=== PATIENT | male | born 2005 | race Caucasian/White ===

== ENCOUNTER 2024-04-14 09:14 | Emergency (ER) | payer OTHER, SELFPAY ==
[2024-04-14] VITALS (7 sets, daily range): BP systolic 107–126; BP diastolic 61–82; BMI 21.8
--- NOTE | 2024-04-14 09:28 | ED.GENMED ---
History of Present Illness
<Harsha Newton Jr., PA-C - Last Filed: 04/14/24 14:57>
General
Chief Complaint: Seizure
Source: patient, spouse, family and ambulance crew
Exam Limitations: none
Time Seen by Provider: 04/14/24 09:17
Nursing documentation reviewed up to this point in time: agreed with
History of Present Illness
History of Present Illness:
18-year-old male presenting to the emergency department today after an event this morning in bed with his girlfriend when he was thrashing his head backward and his arms were contracted toward himself his eyes were rolled on his head this lasted
roughly 5 and seem to occur upon awakening roughly 1 hour ago prior to arrival. The patient has no memory of the event. Has been very confused since the event but is starting to remember slightly is on. Did have nausea and vomited 1 time en route
was given Zofran with improvement. He denies any history of similar symptoms or any seizure history. He does smoke marijuana occasionally denies any alcohol use or drug use. No medications taken recently. No recent trauma. 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
and does sustain occasional head injuries. He has had multiple diagnosed concussion as a child. According to his girlfriend he has had events where he seems confused, dissociated and it was diagnosed as a possible panic attack. He does see a
psychologist for this. He does not take any medications for this.
Review of Systems
<Harsha Newton Jr., PA-C - Last Filed: 04/14/24 14:57>
Review of Systems
Allergies reviewed?: Yes
All Other Systems: ROS reviewed and negative except as documented in HPI and ROS
Phy Exam
<Harsha Newton Jr., PA-C - Last Filed: 04/14/24 14:57>
Physical Exam
Physical Exam:
GENERAL: Alert , in no apparent distress
EYE: pupils equal and reactive
NECK: Supple, no significant adenopathy.
ENT: o/p clr, mmm.
CARDIAC: Regular rate and rhythm .
LUNGS: Clear breath sounds bilaterally, no acute respiratory distress, no wheezes/rales/rhonchi
ABDOMEN: Soft, without focal tenderness, no r/g, no cvat
NEUROLOGICAL: Alert patient is oriented to place but not time or current events. He is asking questions somewhat repetitively but is following basic direct, no focal neuro deficits
SKIN: Warm and dry, skin intact.
MUSCULOSKELETAL: No edema, well perfused.
PSYCH: Normal and appropriate interaction.
Course
<Harsha Newton Jr., KAN - Last Filed: 04/14/24 14:57>
Orders/Labs/Results
Orders:
Orders
04/14/24 09:17
CT Head W/o Iv Contrast Urgent
Comment:
Reason For Exam: new onset seizure
Bedside Glucose- Treatment ONCE
Cardiac Monitoring- Treatment ONCE
0.9% Sodium Chloride 500 ml [Nss] 500 ml IV BOLUS
04/14/24 09:18
Electrocardiogram (*1) Stat
Reason for Study: Other
Other Reason for Exam: neuro symptoms
EKG- Treatment ONCE
04/14/24 09:20
Urinalysis Reflex To Culture Urgent
0.9% Sodium Chloride 1000 ml [Nss] 1,000 ml IV BOLUS
04/14/24 09:43
Complete Blood Count/With Diff Urgent
Comprehensive Metabolic Panel Urgent
Magnesium Urgent
04/14/24 10:08
Lactic Acid Urgent
04/14/24 12:10
EEG Routine Routine
Reason for Exam: ? CPS
Neurology Consult:: DR. MENDIOLA
MR Brain W/o & With Contrast Routine
Comment:
Reason For Exam: seizure
Recent pill cam endoscopy?: No
04/14/24 12:45
Add On- LAB Urgent
Tests Added?: CK
Drug Screen, Urine [Urine Drug Abuse Screen] Urgent
04/14/24 13:49
Consult Neurology [NEUROLOGY CONSULT] Routine
Consulting Provider: Jordi Dodson
Was physician already notified: Yes
Reason for consult: New neurological issues
04/14/24 13:58
Admit Patient As Directed
Co-Sign Provider:
Level of Care: Inpatient admission
Assign to:: Medical/Surgical
Physician / Group: Hospitalists
Diagnosis: seizure
Reason for Hospitalization: seizure
Expected length of stay greater than two midnights?: Yes
ELOS- Estimated Length of Stay in days: 3
I certify the patient meets the requirements for IP care: Yes
04/14/24 13:59
PRN Pain Medication Management As Directed
May give lesser potent ordered pain med per pt: Yes
preference::
Protocol:: Medication orders for pain may be administered in a
manner that supports deferring to patient preference
when the pt is:
- Requesting an ordered lesser potent pain medication.
Least to most potent pain medications are defined
as: acetaminophen < NSAID < tramadol < opioids
(morphine, oxycodone, hydromorphone).
- Requesting a lesser dose of the same medication IF
ORDERED.
- Requesting a less intrusive route of administration
if both routes are prescribed by the provider (PO <
IV).
04/14/24 14:00
DX Deep Vein Thrombosis Video Routine
04/14/24 14:01
Code Status As Directed
Resuscitation Status: Full Code
04/14/24 14:04
Activity As Directed
Activity Level: Ambulate
I&O [Intake/ Output] As Directed
Frequency: q12h
Ot Eval And Treat Routine
Pt Eval And Treat Routine
Activity Level: Ambulate
04/14/24 14:06
Admit/Transfer Patient As Directed
Co-Sign Provider:
Level of Care: Inpatient admission
Assign to:: Medical/Surgical
Physician / Group: Hospitalists
Diagnosis: seizure
Reason for Hospitalization: seizure
Expected length of stay greater than two midnights?: Yes
ELOS- Estimated Length of Stay in days: 3
I certify the patient meets the requirements for IP care: Yes
PRN Pain Medication Management As Directed
May give lesser potent ordered pain med per pt: Yes
preference::
Protocol:: Medication orders for pain may be administered in a
manner that supports deferring to patient preference
when the pt is:
- Requesting an ordered lesser potent pain medication.
Least to most potent pain medications are defined
as: acetaminophen < NSAID < tramadol < opioids
(morphine, oxycodone, hydromorphone).
- Requesting a lesser dose of the same medication IF
ORDERED.
- Requesting a less intrusive route of administration
if both routes are prescribed by the provider (PO <
IV).
04/14/24 18:00
Enoxaparin Sodium [Lovenox] 30 mg SC QPM
Abnormal Lab Results
04/14/24 04/14/24 04/14/24
09:37 09:43 10:08
Lymphocytes % 17.9 L %
(20.5-51.1)
Carbon Dioxide 16 L mmol/L
(22-30)
Glucose 181 H mg/dl
(70-99)
Lactic Acid 3.8 H mmol/L
(0.7-2.0)
Total Bilirubin 2.4 H mg/dl
(0.2-1.3)
POC Glucose 164 H mg/dl
(70-99)
04/14/24 09:43
04/14/24 09:43
Vital Signs
Initial and Last Documented VS:
Initial Vital Signs
Pulse Resp BP Pulse Ox
72 16 109/70 100
04/14/24 09:18 04/14/24 09:18 04/14/24 09:18 04/14/24 09:18
Last Documented Vital Signs
Temp Pulse Resp BP Pulse Ox
97.9 F 70 14 113/65 99
04/14/24 09:38 04/14/24 13:00 04/14/24 12:15 04/14/24 13:00 04/14/24 13:00
<Debra Correa MD - Last Filed: 04/14/24 11:22>
Orders/Labs/Results
Orders:
Orders
04/14/24 09:17
CT Head W/o Iv Contrast Urgent
Comment:
Reason For Exam: new onset seizure
Bedside Glucose- Treatment ONCE
Cardiac Monitoring- Treatment ONCE
0.9% Sodium Chloride 500 ml [Nss] 500 ml IV BOLUS
04/14/24 09:18
Electrocardiogram (*1) Stat
Reason for Study: Other
Other Reason for Exam: neuro symptoms
EKG- Treatment ONCE
04/14/24 09:20
Urinalysis Reflex To Culture Urgent
0.9% Sodium Chloride 1000 ml [Nss] 1,000 ml IV BOLUS
04/14/24 09:43
Complete Blood Count/With Diff Urgent
Comprehensive Metabolic Panel Urgent
Magnesium Urgent
04/14/24 10:08
Lactic Acid Urgent
04/14/24 12:10
EEG Routine Routine
Reason for Exam: ? CPS
Neurology Consult:: DR. MENDIOLA
MR Brain W/o & With Contrast Routine
Comment:
Reason For Exam: seizure
Recent pill cam endoscopy?: No
04/14/24 12:45
Add On- LAB Urgent
Tests Added?: CK
Drug Screen, Urine [Urine Drug Abuse Screen] Urgent
04/14/24 13:49
Consult Neurology [NEUROLOGY CONSULT] Routine
Consulting Provider: Jordi Dodson
Was physician already notified: Yes
Reason for consult: New neurological issues
04/14/24 13:58
Admit Patient As Directed
Co-Sign Provider:
Level of Care: Inpatient admission
Assign to:: Medical/Surgical
Physician / Group: Hospitalists
Diagnosis: seizure
Reason for Hospitalization: seizure
Expected length of stay greater than two midnights?: Yes
ELOS- Estimated Length of Stay in days: 3
I certify the patient meets the requirements for IP care: Yes
04/14/24 13:59
PRN Pain Medication Management As Directed
May give lesser potent ordered pain med per pt: Yes
preference::
Protocol:: Medication orders for pain may be administered in a
manner that supports deferring to patient preference
when the pt is:
- Requesting an ordered lesser potent pain medication.
Least to most potent pain medications are defined
as: acetaminophen < NSAID < tramadol < opioids
(morphine, oxycodone, hydromorphone).
- Requesting a lesser dose of the same medication IF
ORDERED.
- Requesting a less intrusive route of administration
if both routes are prescribed by the provider (PO <
IV).
04/14/24 14:00
DX Deep Vein Thrombosis Video Routine
04/14/24 14:01
Code Status As Directed
Resuscitation Status: Full Code
04/14/24 14:04
Activity As Directed
Activity Level: Ambulate
I&O [Intake/ Output] As Directed
Frequency: q12h
Ot Eval And Treat Routine
Pt Eval And Treat Routine
Activity Level: Ambulate
04/14/24 14:06
Admit/Transfer Patient As Directed
Co-Sign Provider:
Level of Care: Inpatient admission
Assign to:: Medical/Surgical
Physician / Group: Hospitalists
Diagnosis: seizure
Reason for Hospitalization: seizure
Expected length of stay greater than two midnights?: Yes
ELOS- Estimated Length of Stay in days: 3
I certify the patient meets the requirements for IP care: Yes
PRN Pain Medication Management As Directed
May give lesser potent ordered pain med per pt: Yes
preference::
Protocol:: Medication orders for pain may be administered in a
manner that supports deferring to patient preference
when the pt is:
- Requesting an ordered lesser potent pain medication.
Least to most potent pain medications are defined
as: acetaminophen < NSAID < tramadol < opioids
(morphine, oxycodone, hydromorphone).
- Requesting a lesser dose of the same medication IF
ORDERED.
- Requesting a less intrusive route of administration
if both routes are prescribed by the provider (PO <
IV).
04/14/24 18:00
Enoxaparin Sodium [Lovenox] 30 mg SC QPM
Abnormal Lab Results
04/14/24 04/14/24 04/14/24
09:37 09:43 10:08
Lymphocytes % 17.9 L %
(20.5-51.1)
Carbon Dioxide 16 L mmol/L
(22-30)
Glucose 181 H mg/dl
(70-99)
Lactic Acid 3.8 H mmol/L
(0.7-2.0)
Total Bilirubin 2.4 H mg/dl
(0.2-1.3)
POC Glucose 164 H mg/dl
(70-99)
04/14/24 09:43
04/14/24 09:43
Vital Signs
Initial and Last Documented VS:
Initial Vital Signs
Pulse Resp BP Pulse Ox
72 16 109/70 100
04/14/24 09:18 04/14/24 09:18 04/14/24 09:18 04/14/24 09:18
Last Documented Vital Signs
Temp Pulse Resp BP Pulse Ox
97.9 F 70 14 113/65 99
04/14/24 09:38 04/14/24 13:00 04/14/24 12:15 04/14/24 13:00 04/14/24 13:00
<Harsha Newton Jr., PA-C - Last Filed: 04/14/24 14:57>
MDM/Problems Addressed
MDM/Problems Addressed:
18-year-old male presenting to the emergency department with a described event from his girlfriend upon awakening this morning within the last hour where he was thrashing his head backwards his eyes were rolled behind his head and his arms were
contracted lasted roughly 5 minutes since resolution he has been very confused but has been having improvement with this. He did bite his tongue. No history of seizures. Has had random intermittent dissociative events over the past few months
that are poorly characterized and has not had full assessment at this point. Vital signs on arrival are normal. Patient in no obvious distress and does not have any focality to his neurologic examination but does appear somewhat confused. He
knows that he is at [facility] but does not know that [place] was a few days ago and is unsure of the president. CT scan here without emergent findings labs showing elevated lactic acid level but otherwise labs unremarkable. Case was
discussed with neurology that saw the patient and would like to admit for MRI and EEG. Patient agreeable. Paperwork sent to [facility].
Patient seen by neurology patient getting MRI and EEG while still in the ER. These were normal he otherwise stable for outpatient management and follow-up. Return precautions given.
<Harsha Newton Jr., PA-C - Last Filed: 04/14/24 14:57>
*Critical Care Note
Total Time (30-74mins, 75-104mins- exclusive of procedures): Not Applicable
ED Attending Note
<Harsha Newton Jr., PA-C - Last Filed: 04/14/24 14:57>
-
Portions of this chart may have been created with voice recognition software.� Occasional wrong word or��sound alike� substitutions may have occurred due to the inherent limitations of voice recognition software.
<Debra Correa MD - Last Filed: 04/14/24 11:22>
ED Attending Note
Patient seen and examined by attending physician: Yes
I performed the substantive portion of visit, reviewed & personally made and approve the management plan that is documented in note by myself or EVELIN.: Yes
ED Attending Note:
18-year-old male presents to the emergency department after having a seizure as noted by his girlfriend who is laying next to him. She describes head turning, upper body twitching, drooling. Symptoms lasted just under 5 minutes. This is the first
time this has happened and he denies heavy alcohol use, prolonged wakefulness, or other potential triggers. On exam, patient obviously bit his tongue. He is awake alert pleasant, polite, neurologically intact however is asking repeated questions
due to forgetfulness. Work appears generally unremarkable. Of note, patient has been having episodes of questionable anxiety versus feeling disassociated. This makes us wonder if he is been having absence seizure's prior to today's event.
Neurology consulted, recommendation for MRI and EEG. Hospitalist will be made aware
Discharge Plan
Departure
Patient Disposition: Home (Routine Discharge)
Date of Disposition: 04/14/24
Time of Disposition: 11:26
Presentation/result/management discussed w/ accepting MD/DO: Hospitalist
Patient with high blood pressure during this ER visit?: No
Condition: Good
Covid-19: Not Applicable
Discharge Problem:
Seizure
Interventions
Interventions:
*Risk Screen - Suicide Last Done: 04/14/24 09:39
*General Assessment Last Done: 04/14/24 09:39
*Neglect/Abuse Screening Last Done: 04/14/24 09:39
ED- Cardiac Assessment Last Done: 04/14/24 09:39
ED- Neurological Assessment Last Done: 04/14/24 09:39
ED- Pulmonary Assessment Last Done: 04/14/24 09:39
[2024-04-14 09:38] LABS: Glucose - Point of Care 164 mg/dl (70-99)
[2024-04-14 09:53] LABS: % Basophils 0.4 % (0-2); % Eosinophils 0.4 % (0-6); % Immature Granulocytes 0.3 % (0-0.5); % Lymphocytes 17.9 % (20.5-51.1); % Monocytes 8.2 % (1.7-9.3); % Neutrophils 72.8 % (42.2-75.2); Absolute Lymphocytes 1.3 10^3/uL (1.2-3.4); Absolute Monocytes 0.6 10^3/uL (0.1-0.6); Absolute Neutrophils 5.2 10^3/uL (1.4-6.5); Hematocrit 42.2 % (39.0-52.0); Hemoglobin 14.5 g/dL (13.0-18.0); Mean Corp Hgb Conc. 34.4 g/dL (33.0-37.0); Mean Corpuscular Hgb 28.9 pg (27.0-31.0); Mean Corpuscular Volume 84.2 fL (80.0-94.0); Mean Platelet Volume 10.3 fL (7.4-10.4); Nucleated Red Blood Cells % 0 % (-); Platelet Count 232 10^3/uL (130-400); Red Blood Cell Count 5.01 10^6/uL (4.70-6.10); Red Cell Dist. Width 12.2 % (11.5-14.5); White Blood Cell Count 7.1 10^3/uL (4.8-10.8)
[2024-04-14] MEDS: NSS 1000 IV (10:06)
[2024-04-14 10:14] LABS: ALT (SGPT) 27 U/L (0-50); AST (SGOT) 35 U/L (17-59); Albumin 4.9 g/dl (3.5-5.0); Alkaline Phosphatase 76 U/L (38-126); Blood Urea Nitrogen 10 mg/dl (9-20); Calcium 9.9 mg/dl (8.4-10.2); Carbon Dioxide 16 mmol/L (22-30); Chloride 102 mmol/L (98-107); Estimated Creatinine Clearance > 125 ml/min; Glucose 181 mg/dl (70-99); Magnesium 2.1 mg/dl (1.6-2.3); Potassium 4.3 mmol/L (3.5-5.1); Sodium 135 mmol/L (135-145); Total Bilirubin 2.4 mg/dl (0.2-1.3); Total Protein 7.4 g/dl (6.3-8.2); eGFR > 60.00
[2024-04-14 10:34] LABS: Lactic Acid 3.8 mmol/L (0.7-2.0)
--- NOTE | 2024-04-14 11:50 | CON.NEURO ---
Neuro Assessment/Plan
Assessment
first time seizure out of sleep, risk factors include head trauma with LOC
risk of further seizures 40%, with normal MRI and EEG the risk would decrease to 20%
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
no Rx for now
Consultation
Order
Date of Consultation: 04/14/24
Requesting Provider: Harsha Newton
Reason for Consult: Seizure
Subjective/Objective
Subjective Data
Date of Service: April 14, 2024
18 year old man with h/o ~6 concussions, 1 concussion with LOC, presents with suspected seizure. He was sleeping. This morning his girlfriend felt his head pushing into her back, turned around, his head was tilted to the right, arms flexed, shaking.
Post ictal confusion ~30 mins. patient reports feeling back to normal shortly before I entered the room. No weakness or numbness, no prior seizures, no h/o [employer] infections, no fhx of seizures
Objective Data
Vital Signs
Temp Pulse Resp BP Pulse Ox
36.6 C 73 19 107/82 100
04/14/24 09:38 04/14/24 10:45 04/14/24 10:00 04/14/24 10:00 04/14/24 10:45
Lab Results
04/14/24 09:43
04/14/24 09:43
Sodium 135 mmol/L (135-145) 04/14/24 09:43
Potassium 4.3 mmol/L (3.5-5.1) 04/14/24 09:43
BUN 10 mg/dl (9-20) 04/14/24 09:43
Glucose 181 mg/dl (70-99) H 04/14/24 09:43
Calcium 9.9 mg/dl (8.4-10.2) 04/14/24 09:43
Patient Allergies
tobramycin Allergy (Verified 04/14/24 09:18)
Rash
Physical Exam
-
AAOx3 speech clear, language intact
VFF, EOMI, face symmetric
full strength b/l UE/LE
sensation intact to touch/pin
Medications
-
Home Medications
�Medication �Instructions �Recorded
Medical Marijuana 2 puff inhalation DAILYPRN PRN 04/14/24
anixety
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
--- NOTE | 2024-04-14 13:49 | EEG.RPT ---
Electroencephalogram Report
Recording
Date of EE04/14/24
Type of EEG: Routine
Length of EEG recordin minutes
Done with Video Recording: Yes
Patient Status: Emergency Room
Recording Conditions: Awake and Drowsy
Hyperventilation Performed: Yes
Photic Stimulation Performed: Yes
Report
LESS THAN 1 HOUR EEG INTERPRETATION:
Unremarkable EEG for age
CLINICAL CORRELATION:
A normal EEG does not rule out a diagnosis of epilepsy.
Patient's movements and sense of restlessness were not associated with epileptiform changes.
If clinical suspicion for seizure persists, a prolonged recording may be warranted.
Clinical correlation is advised.
METHODS:
A 21 channel digitized electroencephalogram (EEG) was performed using the 10/20 international system of electrode placement and one-lead of ECG recorded. The [employer] quantitative EEG system was utilized.
ELECTROENCEPHALOGRAPHER IMPRESSION(S):
Quality of study
Fair, limited by muscle artifact
Background
There was an unremarkable anterior-posterior voltage gradient of alpha frequency.
With eye opening the background activity changed to a low voltage mixture of frequencies.
There were no significant asymmetries of background activity noted.
Sleep
Drowsiness present
Hyperventilation
No activation
Photic Stimulation
No activation
ECG
Normal sinus rhythm
--- NOTE | 2024-04-14 15:07 | W.DCSUMMARY ---
Documented by User: Xochilt Doherty DO, Resident 04/14/24 15:19
Discharge Summary
Discharge Data
Date of Admission: 04/14/24
Date of Discharge: 04/14/24
-
Pending Results: No
Hospital Course
Discharging Physician : Dr. Xochilt Doherty, Dr. Checo Rodriguez
Disposition : home
Primary care physician : Nitesh Rojas
Principal Discharge diagnosis : seizure
Chronic Discharge diagnosis : n/a
Hospital Course : Pt was laying awake in bed when he started to thrash his head backward, arms contracted toward himself, and his eyes rolled back into his head. Per his gf [place], this lasted about 5 minutes. Pt bit the sides of his tongue during
this event. Pt has no memory of event and believes he has been asleep for the past 3 hours despite being awake. He vomited 1x en route to the hospital. Neurological exam intact, except pt repeats same questions and repetitively states he 'just woke
up.' No abnormalities noted on head CT, brain MRI, and EEG. Pt hemodynamically stable, afebrile
Important imaging findings :
Head CT: No acute intracranial abnormality
Brain MRI: No acute intracranial abnormality
EEG: LESS THAN 1 HOUR EEG INTERPRETATION: Unremarkable EEG for age
Procedure findings : n/a
Discharge Plan
-
Patient Disposition: Home (Routine Discharge)
Discharge Diagnosis/Procedures: seizure
Condition: Fair
Diet: As tolerated
Activity: As tolerated
Additional Activity: Do NOT participate in MMA until cleared by a doctor
Driving Restrictions: As prior to admission
Bathing Restrictions: None
Instructions: Seizures
Referrals:
Liane Feliciano MD [Active] - in two to three weeks
Nitesh Rojas DO [Family Provider] - in one week
Additional Discharge Medication Instructions: No new prescriptions at this time.
Prescriptions:
Discontinued
Medical Marijuana
2 puff inhalation DAILYPRN PRN (Reason: anixety)
Discharge Orders:
Discharge Patient (As Directed); Ordered 04/14/24
Ordered By: Xochilt Doherty
Discharge Date and Time
Print Language: [place] CIT[place]

Documented by User: Checo Rodriguez MD 04/14/24 15:24
Discharge Summary
Discharge Data
Date of Admission: 04/14/24
Date of Discharge: 04/14/24
Discharge Plan
-
Patient Disposition: Home (Routine Discharge)
Discharge Diagnosis/Procedures: seizure
Condition: Fair
Diet: As tolerated
Activity: As tolerated
Additional Activity: Do NOT participate in MMA until cleared by a doctor
Driving Restrictions: As prior to admission
Bathing Restrictions: None
Instructions: Seizures
Referrals:
Liane Feliciano MD [Active] - in two to three weeks
Nitesh Rojas DO [Family Provider] - in one week
Additional Discharge Medication Instructions: No new prescriptions at this time.
Prescriptions:
Discontinued
Medical Marijuana
2 puff inhalation DAILYPRN PRN (Reason: anixety)
Discharge Orders:
Discharge Patient (As Directed); Ordered 04/14/24
Ordered By: Xochilt Doherty
Discharge Date and Time
Print Language: [place] CITIZ[place]
[2024-04-14 15:27] LABS: Creatine Phosphokinase 294 U/L (55-170)
== END 2024-04-14 16:21 | disposition home or self-care (01) ==
LOC: EMR 09:14
PROVIDERS: Physician Assistant; CONSULT PHYSICIAN Psychiatry & Neurology Clinical Neurophysiology; EMERGENCY PHYSICIAN Emergency Medicine; FAMILY PHYSICIAN Family Medicine
DX: R56.9 Unspecified convulsions (principal); R41.0 Disorientation, unspecified; F41.9 Anxiety disorder, unspecified; F90.9 Attention-deficit hyperactivity disorder, unspecified type; Z87.820 Personal history of traumatic brain injury; Z87.01 Personal history of pneumonia (recurrent); Z88.1 Allergy status to other antibiotic agents
CPT/HCPCS: 99285; 96360; 70450; 70553; 80053; 82550; 82962; 83605; 83735; 85025; 93005; 95816; A9575

== ENCOUNTER 2025-03-15 14:38 | Emergency (ER) | payer OTHER, SELFPAY ==
--- NOTE | 2025-03-15 14:43 | ED.GENMED ---
History of Present Illness
General
Chief Complaint: Seizure
Source: patient and ambulance crew
Exam Limitations: none
Time Seen by Provider: 03/15/25 14:40
History of Present Illness
History of Present Illness:
See MDM
Past History
Past History
ED Past Medical History: Seizures
ED Past Surgical History: None
Social History
Tobacco: Non-smoker
Alcohol: None
Phy Exam
Physical Exam
Physical Exam:
See MDM
Course
Orders/Labs/Results
Orders:
Orders
03/15/25 14:46
Ondansetron Orally Disint [Zofran Odt (Orally Disintegrating)] 4 mg PO NOW STA
03/15/25 15:05
Lorazepam [Ativan] 1 mg PO NOW STA
03/15/25 15:12
Complete Blood Count/With Diff Urgent
Comprehensive Metabolic Panel Urgent
Abnormal Lab Results
03/15/25
15:12
Lymphocytes % 19.6 L %
(20.5-51.1)
Glucose 114 H mg/dl
(70-99)
Calcium 10.5 H mg/dl
(8.4-10.2)
Total Bilirubin 2.1 H mg/dl
(0.2-1.3)
Total Protein 8.5 H g/dl
(6.3-8.2)
Albumin 5.4 H g/dl
(3.5-5.0)
03/15/25 15:12
03/15/25 15:12
Vital Signs
Initial and Last Documented VS:
Initial Vital Signs
Pulse Resp Pulse Ox
84 10 100
03/15/25 14:41 03/15/25 14:41 03/15/25 14:41
Last Documented Vital Signs
Temp Pulse Resp BP Pulse Ox
97.7 F 66 21 114/70 100
03/15/25 14:44 03/15/25 15:00 03/15/25 15:00 03/15/25 15:00 03/15/25 15:00
MDM/Problems Addressed
Differential Diagnosis Includes:
Note:
CHIEF COMPLAINT(S)
Seizure episode.
HISTORY OF PRESENT ILLNESS
The patient is a 19-year-old male with a history of epilepsy diagnosed last year. He was brought to the emergency department following a seizure today. The patient�s previous rescue medication, clonazepam, did not work during this episode. Patient
appears mildly postictal. Patient states he does not recall the seizure but remembers his family member rubbing on his chest to wake him up.
PHYSICAL EXAM
General: Alert, no acute distress.
Skin: Warm, dry.
Head: Normocephalic, atraumatic
Neck: Appears supple, trachea midline.
Eyes, Ears, Nose, Mouth, and Throat: Moist mucous membranes. Small tongue bite to the right
Cardiovascular: No signs of cyanosis
Respiratory: Respirations are non-labored.
Abdomen: Non-distended
Musculoskeletal: No deformities
Neurological: Appears mildly postictal but no focal deficits noted
Psychiatric: Cooperative, appropriate mood and affect.
DIFFERENTIAL DIAGNOSIS
- Epilepsy
- Acute symptomatic seizure
- Pseudoseizure
- Syncope
- Hypoglycemia
- Electrolyte imbalance
- Medication noncompliance
- Alcohol withdrawal seizure
- Central nervous system infection
- Drug-induced seizure
MEDICATION RECONCILIATION
Clonazepam noted as prescribed rescue medication.
MEDICAL DECISION MAKING
- Number and Complexity of Problems Addressed: Chronic conditions affecting care: Epilepsy.
- Data:
- Category 1: Current seizure episode evaluated; patient was informed about the difficulty in immediate intervention without IV access in case of another seizure.
DIAGNOSIS
Epilepsy - ICD-10 Code G40.909
SUMMARY OF ENCOUNTER
A 19-year-old male presented to the emergency department with a seizure episode despite a history of epilepsy managed with clonazepam. The patient was in a postictal state but recovering appropriately. A dose of lorazepam (Ativan) was administered,
which helped stabilize the patient.
DISPOSITION
Discharge
ASSESSMENT
Breakthrough seizure likely secondary to epilepsy.
EMERGENCY TREATMENTS ADMINISTERED
Lorazepam (Ativan) was administered as a rescue medication.
PLAN
The patient was advised not to drive until cleared by his primary care physician or neurologist. He is to call his neurologist tomorrow to discuss potential medication adjustments.
PATIENT EDUCATION AND COUNSELING
Educated on the importance of medication adherence and avoiding activities such as driving until medically cleared.
FOLLOW-UP INSTRUCTIONS
The patient should contact his neurologist the following day to discuss any necessary changes in his medication regimen.
MEDICATION RECONCILIATION
- Clonazepam as prescribed rescue medication.
- Lorazepam (Ativan) administered in the emergency department.
MEDICAL DECISION MAKING
- Number and Complexity of Problems Addressed: Chronic conditions affecting care include epilepsy. Differential diagnosis includes epilepsy, acute symptomatic seizure, pseudoseizure, syncope, hypoglycemia, electrolyte imbalance, medication
noncompliance, alcohol withdrawal seizure, central nervous system infection, and drug-induced seizure.
- Data:
Category 1: Current seizure episode evaluated. The patient was informed about the difficulty in immediate intervention without IV access for potential future seizures.
-Risk: Prescription medication was prescribed and lorazepam was administered to manage the acute seizure episode.
DIAGNOSIS
- Epilepsy - ICD-10 Code G40.909
*Pulse Oximetry
Patient hypoxic: no
*Critical Care Note
Total Time (30-74mins, 75-104mins- exclusive of procedures): Not Applicable
ED Attending Note
-
Portions of this chart may have been created with voice recognition software.� Occasional wrong word or��sound alike� substitutions may have occurred due to the inherent limitations of voice recognition software.
Discharge Plan
Departure
Patient Disposition: Home (Routine Discharge)
Date of Disposition: 03/15/25
Time of Disposition: 16:40
Patient with high blood pressure during this ER visit?: No
Discharge Problem:
Breakthrough seizure
Instructions: Seizures, Adult (DC)
Prescriptions:
No Action
No Current Medications
0
Referrals:
Alhaji Levy MD [Family Provider, [facility]]
Activity Restrictions/Additional Instructions:
Please return for any worsening symptoms.
You may return at any time if you have further concerns.
Please follow up with your neurologist. Please call tomorrow. Do not drive a car until cleared by your primary care doctor or the neurologist.
Thank you for choosing [facility].
Interventions
Interventions:
*Risk Screen - Suicide Last Done: 03/15/25 14:52
*General Assessment Last Done: 03/15/25 14:52
*Neglect/Abuse Screening Last Done: 03/15/25 14:52
*ED- Fall Risk Assessment Last Done: 03/15/25 14:54
*ED COVID-19 Vaccine History Last Done: 03/15/25 14:54
*ED Influenza Vaccine History Last Done: 03/15/25 14:54
ED- Cardiac Assessment Last Done: 03/15/25 14:59
ED- Neurological Assessment Last Done: 03/15/25 14:59
ED- Pulmonary Assessment Last Done: 03/15/25 14:59
Discharge Date and Time
Print Language: ICELANDIC
[2025-03-15 14:44] VITALS: BP 105/88
[2025-03-15 14:46] VITALS: BP 105/88
[2025-03-15 14:53] VITALS: BMI 22.7
[2025-03-15] MEDS: ZOFRAN ODT (ORALLY DISINTEGRATING) 4 MG PO (14:58)
[2025-03-15 15:00] VITALS: BP 114/70
--- NOTE | 2025-03-15 15:08 | EDRN ---
Dr. Ruvalcaba was in room w/ pt on arrival and has returned to room now. Dr. Ruvalcaba informed of pt's seizure meds, increased when had last seizure in October, lamictal increased and became XR.
--- NOTE | 2025-03-15 15:10 | EDRN ---
Pt refusing IV access to this RN and Dr. Ruvalcaba. Pt refused IV accress enroute. Pt was okay w/ straight stick for ordered bloodwork but did not want any IV.
[2025-03-15] MEDS: ATIVAN 1 MG PO (15:13)
[2025-03-15 15:23] LABS: Hematocrit 44.0 % (39.0-52.0); Hemoglobin 15.3 g/dL (13.0-18.0); Mean Corp Hgb Conc. 34.8 g/dL (33.0-37.0); Mean Corpuscular Volume 84.0 fL (80.0-94.0); Nucleated Red Blood Cells % 0 % (-); Platelet Count 221 10^3/uL (130-400); Red Cell Dist. Width 11.5 % (11.5-14.5)
[2025-03-15 15:44] LABS: ALT (SGPT) 20 U/L (0-50); AST (SGOT) 21 U/L (17-59); Albumin 5.4 g/dl (3.5-5.0); Alkaline Phosphatase 68 U/L (38-126); Blood Urea Nitrogen 16 mg/dl (9-20); Calcium 10.5 mg/dl (8.4-10.2); Carbon Dioxide 22 mmol/L (22-30); Chloride 104 mmol/L (98-107); Estimated Creatinine Clearance > 125 ml/min; Glucose 114 mg/dl (70-99); Potassium 4.3 mmol/L (3.5-5.1); Sodium 138 mmol/L (135-145); Total Protein 8.5 g/dl (6.3-8.2); eGFR > 60.00
[2025-03-15 16:00] VITALS: BP 121/68
--- NOTE | 2025-03-15 16:49 | EDRN ---
Pt ambulated to BR and back to stretcher w/out difficulty at this time.
== END 2025-03-15 16:54 | disposition home or self-care (01) ==
LOC: EMR 14:38
PROVIDERS: EMERGENCY PHYSICIAN Student in an Organized Health Care Education/Training Program; FAMILY PHYSICIAN Family Medicine
DX: G40.909 Epilepsy, unspecified, not intractable, without status epilepticus (principal)
CPT/HCPCS: 99283; 80053; 85025